=== PATIENT | male | born 1975 | race Caucasian/White ===

== ENCOUNTER 2021-11-24 20:13 | Emergency (ER) | payer MEDICAID ==
[~2021-11-24] VITALS: Ht 175.3 cm; Wt 99.0 kg
[2021-11-24] MEDS ORDERED: LORAZEPAM 2MG/ML CPJ IM STA (20:30)
[2021-11-24] MEDS ORDERED: HALOPERIDOL LACTATE 5MG/ML VIAL IM STA (20:30)
[2021-11-24 20:48] LABS: EOSINOPHILS % 1.8 % (0.0-5.0); HEMATOCRIT. 44.3 % (42.0-52.0); HEMOGLOBIN. 15.2 g/dL (14.0-18.0); MEAN CORPUSCULAR HEMOGLOBIN 30.4 pg (28.0-32.0); MEAN CORPUSCULAR VOLUME 88.2 fL (80.0-94.0); MEAN PLATELET VOLUME 10.5 fl (7.4-10.4); MONOCYTES % 6.3 % (2.0-8.0); NEUTROPHILS % 63.9 % (40.0-76.0); PLATELET 198 x1000/uL (130-400); RED BLOOD CELL COUNT 5.02 mill/uL (4.7-6.1); RED CELL DISTRIBUTION WIDTH 12.8 % (11.6-14.6)
[2021-11-24 20:54] LABS: CHLORIDE 113 mEq/L (98-107)
[2021-11-24 20:58] LABS: ETHANOL BLOOD 213 mg/dL
[2021-11-24] MEDS ORDERED: TETANUS, DIPHTHERIA, PERTUSSIS VAC/PF 0.5ML (>10YR OLD) IM ONE (21:00)
[2021-11-24] MEDS ORDERED: SODIUM CHLORIDE 0.9% 1,000 ML IV ONE (21:00)
[2021-11-24 21:30] VITALS: BP 118/80
== END 2021-11-24 22:10 | disposition left against medical advice (07) ==
LOC: ER 20:13
DX: R00.0 Tachycardia, unspecified (principal)
CPT/HCPCS: 36415; 71045; 80053; 80320; 85025; 96372; 99284; J1630; J2060; J7030; Z7610; G0480

== ENCOUNTER 2025-05-26 00:06 | Emergency (ER) | payer MEDICAID ==
[~2025-05-26] VITALS: Ht 180.3 cm; Wt 93.0 kg
[2025-05-26 00:08] VITALS: O2SAT 98
[2025-05-26] MEDS: HYDROCODONE/ACETAMINOPHEN 5/325MG TABLET PO ONE (02:15)
[2025-05-26] MEDS ORDERED: BO1 TP (03:10)
[2025-05-26] MEDS ORDERED: IBUP-2437 MT (03:10)
[2025-05-26 03:25] VITALS: BP 142/97; PULSE 88; RESP 14; TEMP 36.4; O2SAT 100
== END 2025-05-26 03:26 | disposition home or self-care (01) ==
LOC: ER 00:06
DX: S06.0XAA Concussion with loss of consciousness status unknown, initial encounter (principal); T14.8XXA Other injury of unspecified body region, initial encounter; H11.32 Conjunctival hemorrhage, left eye; Z86.59 Personal history of other mental and behavioral disorders; Y04.0XXA Assault by unarmed brawl or fight, initial encounter; Y93.89 Activity, other specified; Y92.89 Other specified places as the place of occurrence of the external cause; Y99.8 Other external cause status
CPT/HCPCS: 70486; 71110; 99284